=== PATIENT | male | born 1955 | race Caucasian/White ===

== ENCOUNTER 2023-12-02 06:51 | Emergency (ER) | payer MEDICARE, BC, SELFPAY ==
[2023-12-02 06:59] VITALS: BP 156/82
--- NOTE | 2023-12-02 07:22 | ED.GENMED ---
History of Present Illness
<John Croft PA-C - Last Filed: 12/02/23 10:36>
General
Chief Complaint: Cold/Flu/URI Symptoms
Source: patient
Exam Limitations: none
Time Seen by Provider: 12/02/23 07:06
Travel History
Have you had any contact with someone who has COVID-19?: No
Do you have any symptoms of coronavirus? Fever > 100 degrees, chills, cough, shortness of breath, sore throat, loss of taste or smell, muscle aches, or headache?: No
History of Present Illness
History of Present Illness:
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 He denies measured fever. He has a history of heart disease, congestive heart failure, PSVT. He has tried
Robitussin DM. He does deal with seasonal allergies. He drives back and forth frequently from [place] to visit his grand kids. His primary residence is in [place]. He denies leg swelling or chest pain. No hemoptysis. No other
complaints
Phy Exam
<John Croft PA-C - Last Filed: 12/02/23 10:36>
Physical Exam
Physical Exam:
General: Well-appearing male no acute respiratory distress
HEENT: Normocephalic atraumatic
Heart: Regular rate and rhythm no murmurs
Lungs: Rhonchi and wheeze bilaterally
Extremities: No cyanosis or edema
Skin: Warm no rash
Course
<John Croft PA-C - Last Filed: 12/02/23 10:36>
Orders/Labs/Results
Orders:
Orders
12/02/23 07:21
Ipratropium/Albuterol Sulfate [Duoneb] 3 ml INH R NOW STA
12/02/23 07:22
CR Chest - 2 Views Urgent
Comment:
Reason For Exam: cough
12/02/23 07:32
COVID-19 Antigen Urgent
Source: Nasal Swab
Complete Blood Count/With Diff Urgent
Comprehensive Metabolic Panel Urgent
NT-proBNP Urgent
Influenza A+B Rapid Molecular Urgent
CINDY Source: Nasal Swab
Specimen Description:
12/02/23 10:24
Azithromycin 500 mg/250 ml [Zithromax Infusion] 500 mg in 250 ml IV NOW
CefTRIAXone [Rocephin] 1,000 mg IV NOW STA
Abnormal Lab Results
12/02/23
07:32
RBC 3.21 L 10^6/uL
(4.70-6.10)
Hgb 11.2 L g/dL
(13.0-18.0)
Hct 31.0 L %
(39.0-52.0)
MCV 96.6 H fL
(80.0-94.0)
MCH 34.9 H pg
(27.0-31.0)
Absolute Lymphs (auto) 0.7 L 10^3/uL
(1.2-3.4)
Absolute Monos (auto) 0.7 H 10^3/uL
(0.1-0.6)
Neutrophils % 80.8 H %
(42.2-75.2)
Lymphocytes % 9.4 L %
(20.5-51.1)
Sodium 134 L mmol/L
(135-145)
Glucose 121 H mg/dl
(70-99)
Total Bilirubin 1.6 H mg/dl
(0.2-1.3)
12/02/23 07:32
12/02/23 07:32
Vital Signs
Initial and Last Documented VS:
Initial Vital Signs
Temp Pulse Resp BP Pulse Ox
99.8 F 81 20 156/82 99
12/02/23 06:59 12/02/23 06:59 12/02/23 06:59 12/02/23 06:59 12/02/23 06:59
Last Documented Vital Signs
Temp Pulse Resp BP Pulse Ox
99.8 F 78 17 139/65 95
12/02/23 06:59 12/02/23 11:00 12/02/23 11:00 12/02/23 11:00 12/02/23 11:00
<Brennan Chawla MD - Last Filed: 12/02/23 11:41>
Orders/Labs/Results
Orders:
Orders
12/02/23 07:21
Ipratropium/Albuterol Sulfate [Duoneb] 3 ml INH R NOW STA
12/02/23 07:22
CR Chest - 2 Views Urgent
Comment:
Reason For Exam: cough
12/02/23 07:32
COVID-19 Antigen Urgent
Source: Nasal Swab
Complete Blood Count/With Diff Urgent
Comprehensive Metabolic Panel Urgent
NT-proBNP Urgent
Influenza A+B Rapid Molecular Urgent
CINDY Source: Nasal Swab
Specimen Description:
12/02/23 10:24
Azithromycin 500 mg/250 ml [Zithromax Infusion] 500 mg in 250 ml IV NOW
CefTRIAXone [Rocephin] 1,000 mg IV NOW STA
Abnormal Lab Results
12/02/23
07:32
RBC 3.21 L 10^6/uL
(4.70-6.10)
Hgb 11.2 L g/dL
(13.0-18.0)
Hct 31.0 L %
(39.0-52.0)
MCV 96.6 H fL
(80.0-94.0)
MCH 34.9 H pg
(27.0-31.0)
Absolute Lymphs (auto) 0.7 L 10^3/uL
(1.2-3.4)
Absolute Monos (auto) 0.7 H 10^3/uL
(0.1-0.6)
Neutrophils % 80.8 H %
(42.2-75.2)
Lymphocytes % 9.4 L %
(20.5-51.1)
Sodium 134 L mmol/L
(135-145)
Glucose 121 H mg/dl
(70-99)
Total Bilirubin 1.6 H mg/dl
(0.2-1.3)
12/02/23 07:32
12/02/23 07:32
Vital Signs
Initial and Last Documented VS:
Initial Vital Signs
Temp Pulse Resp BP Pulse Ox
99.8 F 81 20 156/82 99
12/02/23 06:59 12/02/23 06:59 12/02/23 06:59 12/02/23 06:59 12/02/23 06:59
Last Documented Vital Signs
Temp Pulse Resp BP Pulse Ox
99.8 F 78 17 139/65 95
12/02/23 06:59 12/02/23 11:00 12/02/23 11:00 12/02/23 11:00 12/02/23 11:00
<John Croft PA-C - Last Filed: 12/02/23 10:36>
MDM/Problems Addressed
Differential Diagnosis Includes:
Persistent cough with wheeze. Question bronchitis versus pneumonia versus viral versus bacterial illness. Question also allergy mediated component.
Will test for COVID and flu. Chest x-ray pending. DuoNeb ordered. Check labs including BMP
<John Croft PA-C - Last Filed: 12/02/23 10:36>
*Critical Care Note
Total Time (30-74mins, 75-104mins- exclusive of procedures): Not Applicable
<John Croft PA-C - Last Filed: 12/02/23 10:36>
Update Note
Update Note:
COVID and flu negative BNP negative. Chest x-ray shows right lower lobe pneumonia. Discussed findings with emergency room attending as well as radiology. Considered admission but not indicated at this point given he is in no respiratory distress
no fever labs look good otherwise. Start him on Rocephin and Zithromax. Will be discharged with albuterol and steroid as well. Return precautions were given
ED Attending Note
<John Croft PA-C - Last Filed: 12/02/23 10:36>
-
Portions of this chart may have been created with voice recognition software.� Occasional wrong word or��sound alike� substitutions may have occurred due to the inherent limitations of voice recognition software.
<Brennan Chawla MD - Last Filed: 12/02/23 11:41>
ED Attending Note
Patient seen and examined by attending physician: Yes
I performed the substantive portion of visit, reviewed & personally made and approve the management plan that is documented in note by myself or MEAGHAN.: Yes
ED Attending Note:
68-year-old male cough congestion rattling in his chest some headache and fatigue x 9 to 10 days. Worse the last 24 hours. However he was able to do a bike ride yesterday without issues. No pleuritic chest pain no leg pain or leg swelling.
Previous similar like event last winter with RSV.
Underlying coronary disease. Hypertension hypercholesterolemia
GENERAL: Alert and oriented in no apparent distress
EYE: Orbits normal.
CARDIAC: Regular rate and rhythm without any obvious murmurs.
LUNGS: Coarse rhonchi and expiratory wheezing throughout. Coarse cough at times. However able to speak well and in no respiratory distress
ABDOMEN: Soft, without focal tenderness or distention
NEUROLOGICAL: Alert and oriented , grossly non-focal
SKIN: Warm and dry, no rash or lesion, no discoloration, skin intact.
MUSCULOSKELETAL: No edema,no deformity.Good color
PSYCH: Normal and appropriate interaction.
Impression: Likely asthmatic bronchitis versus pneumonia. Doubt primary cardiac issue. Workup in progress
Labs stable. Small pneumonia. Highly doubt pulmonary emboli. Reasonable for outpatient management. Antibiotics steroids nebulizer
Discharge Plan
Departure
Patient Disposition: Home (Routine Discharge)
Date of Disposition: 12/02/23
Time of Disposition: 10:31
Patient with high blood pressure during this ER visit?: No
Discharge Problem:
Pneumonia
Instructions: Pneumonia
Prescriptions:
New
cefdinir 300 mg capsule
300 mg PO BID Qty: 14 0RF
azithromycin [Zithromax Z-Larry] 250 mg tablet
250 mg PO DAILY Qty: 4 0RF
albuterol sulfate 90 mcg/actuation HFA aerosol inhaler
1 inh inhalation Q6H PRN (Reason: shortness of breath or wheezing) Qty: 6.7 0RF
prednisone 20 mg tablet
40 mg PO DAILY 5 Days Qty: 10 0RF
No Action
clopidogrel 75 mg Tablet
75 mg PO HS
acetaminophen [Tylenol Extra Strength] 500 mg Tablet
1,000 mg PO Q6H PRN (Reason: mild pain)
valsartan 320 mg Tablet
320 mg PO HS
metoprolol succinate 25 mg Tablet Extended Release 24 Hr
25 mg PO HS
rosuvastatin 40 mg Tablet
40 mg PO HS
hydrochlorothiazide 12.5 mg Tablet
12.5 mg PO DAILY
dextromethorphan-guaifenesin [Robitussin-DM] 10-100 mg/5 mL Syrup
20 ml PO Q4HPRN PRN (Reason: cough)
vitamin B complex Tablet
1 tab PO DAILY
coenzyme Q10 [CoQ-10] 100 mg Capsule
100 mg PO BID
cholecalciferol (vitamin D3) 50 mcg (2,000 unit) Tablet
50 mcg PO DAILY
Centrum Silver Men [id number] mcg Tablet
1 tab PO DAILY
psyllium husk [Metamucil] 0.4 gram Capsule
0.8 g PO DAILY
aspirin 81 mg Tablet,Delayed Release (Dr/Ec)
81 mg PO HS
Referrals:
NONE,* [Family Provider] -
Activity Restrictions/Additional Instructions:
Use antibiotics as directed. Use inhaler if needed for wheezing or trouble breathing. Use steroid as directed. Please return here for worsening symptoms otherwise.
Interventions
Interventions:
*Risk Screen - Suicide Last Done: 12/02/23 10:13
*General Assessment Last Done: 12/02/23 10:14
*Neglect/Abuse Screening Last Done: 12/02/23 10:13
*ED COVID-19 Vaccine History Last Done: 12/02/23 06:59
ED- Pulmonary Assessment Last Done: 12/02/23 07:37
Discharge Date and Time
Print Language: [place]
[2023-12-02] MEDS: DUONEB 3 ML INH (07:35)
[2023-12-02 07:37] VITALS: BMI 27.7
[2023-12-02 07:43] LABS: % Basophils 0.1 % (0-2); % Eosinophils 0.6 % (0-6); % Immature Granulocytes 0.5 % (0-0.5); % Lymphocytes 9.4 % (20.5-51.1); % Monocytes 8.6 % (1.7-9.3); % Neutrophils 80.8 % (42.2-75.2); Absolute Eosinophils 0.1 10^3/uL (0-0.7); Absolute Lymphocytes 0.7 10^3/uL (1.2-3.4); Absolute Monocytes 0.7 10^3/uL (0.1-0.6); Absolute Neutrophils 6.3 10^3/uL (1.4-6.5); Hemoglobin 11.2 g/dL (13.0-18.0); Mean Corp Hgb Conc. 36.1 g/dL (33.0-37.0); Mean Corpuscular Hgb 34.9 pg (27.0-31.0); Mean Corpuscular Volume 96.6 fL (80.0-94.0); Mean Platelet Volume 9.7 fL (7.4-10.4); Nucleated Red Blood Cells % 0 % (-); Platelet Count 131 10^3/uL (130-400); Red Blood Cell Count 3.21 10^6/uL (4.70-6.10); White Blood Cell Count 7.8 10^3/uL (4.8-10.8)
[2023-12-02 08:00] LABS: COVID-19 Antigen Negative (Negative)
[2023-12-02 08:02] LABS: ALT (SGPT) 21 U/L (0-50); AST (SGOT) 22 U/L (17-59); Albumin 4.2 g/dl (3.5-5.0); Alkaline Phosphatase 61 U/L (38-126); Blood Urea Nitrogen 16 mg/dl (9-20); Calcium 8.9 mg/dl (8.4-10.2); Carbon Dioxide 27 mmol/L (22-30); Chloride 102 mmol/L (98-107); Estimated Creatinine Clearance 109 ml/min; Glucose 121 mg/dl (70-99); Potassium 4.1 mmol/L (3.5-5.1); Sodium 134 mmol/L (135-145); Total Bilirubin 1.6 mg/dl (0.2-1.3); Total Protein 6.7 g/dl (6.3-8.2); eGFR > 60.00
[2023-12-02 08:09] LABS: NT-proBNP 294 pg/ml
[2023-12-02] MEDS: ZITHROMAX INFUSION 250 IV (10:52)
[2023-12-02] MEDS: ROCEPHIN 1000 MG IV (10:52)
[2023-12-02 11:00] VITALS: BP 139/65
== END 2023-12-02 12:30 | disposition home or self-care (01) ==
LOC: EMR 06:51
PROVIDERS: Physician Assistant; EMERGENCY PHYSICIAN Emergency Medicine
DX: J18.9 Pneumonia, unspecified organism (principal); I11.0 Hypertensive heart disease with heart failure; I25.10 Atherosclerotic heart disease of native coronary artery without angina pectoris; Z11.52 Encounter for screening for COVID-19; I50.9 Heart failure, unspecified
CPT/HCPCS: 99284; 96365; 96375; 94640; 71046; 80053; 83880; 85025; 87502; 87811